=== PATIENT | female | born 1950 | race Caucasian/White ===

== ENCOUNTER 2016-08-21 09:32 | Day surgery (SDC) | payer OTHER, MEDICARE, BC ==
[~2016-08-21 09:32] MED LIST: ALLEGRA ALLERG180 M1 PO; ASPIRIN81 M1 PO; BENICAR HCT 40-1 T; CALCIUM CARBON500 M2 PO; COZAAR50 M1 PO; CULTURELLE1 EAC1 PO; CYCLOBENZAPRINE10 M1 PO; CYCLOBENZAPRINE5 M1 PO; DEXAMETHASONE4 M1 PO; DURAGESIC1 EAC3 TOP; ELIQUIS2.5 M1 PO; FEOSOL325 M1 PO; IBUPROFEN800 MG; IPRAT-ALBUT 0.5-3 ML INH; LASIX40 M1 PO; LIDOCAINE1 EACH TOP; LOVENOX100 MG/1 M SC; LYRICA100 MG/CAP PO; MERREM1 GM IV; METAMUCIL660 GM; MILK OF MAGNESIA PO; MIRALAX17 G2 PO; MUCINEX DM ER1 EAC1 PO; MUCINEX600 M1 PO; MULTIVITAMINS1 EAC6 PO; NORCO 5-325 TA1 EACH PO; NORVASC10 M2 PO; NORVASC10 MG; NOVOLOG100 UNITS/ SC; NYSTATIN1 EA10 TOP; PEPCID AC10 MG; PERIDEX118 ML SSP; POTASSIUM CHLO20 ME3 PO; PROBIOTIC1 EA10 PO; PROTONIX40 M2 PO; PROTONIX40 MG; REGLAN5 M1 PO; SENNA8.6 M2 PO; SIMETHICONE80 M3 PO; TRAMADOL HCL50 M2 PO; TYLENOL325 M2 PO; ULTRAM50 MG PO; URECHOLINE PO; VANCOMYCIN1 GM/VIA2 IV; VITAMIN C500 M3 PO; XANAX0.25 M1 PO; ZYRTEC1010 PO
[2016-10-15] MEDS ORDERED: WAL-ZYR10 M2 PO (16:33)
[2016-10-15] MEDS ORDERED: ASPIRIN81 M1 PO (16:33)
[2016-10-15] MEDS ORDERED: [UNRECOGNIZED DRUG - OTHER] (16:41)
== END 2016-08-21 17:30 ==
LOC: SHSC 09:32 → ORE 11:32 → PACU 12:47 → SHSB 13:35
PROC: 0C7S8ZZ Dilation of Larynx, Via Natural or Artificial Opening Endoscopic (ICD-10-PCS; principal; 2016-08-21)
PROC: 3E0F83Z Introduction of Anti-inflammatory into Respiratory Tract, Via Natural or Artificial Opening Endoscopic (ICD-10-PCS; 2016-08-21)
PROC: 0C5S8ZZ Destruction of Larynx, Via Natural or Artificial Opening Endoscopic (ICD-10-PCS; 2016-08-21)
DX: J38.6 Stenosis of larynx (principal); F32.9 Major depressive disorder, single episode, unspecified; K44.9 Diaphragmatic hernia without obstruction or gangrene; Z79.01 Long term (current) use of anticoagulants; Z79.899 Other long term (current) drug therapy; Z88.0 Allergy status to penicillin; Z88.5 Allergy status to narcotic agent; Z91.048 Other nonmedicinal substance allergy status; Z86.718 Personal history of other venous thrombosis and embolism; Z87.01 Personal history of pneumonia (recurrent); Z90.49 Acquired absence of other specified parts of digestive tract; Z98.1 Arthrodesis status; Z98.890 Other specified postprocedural states
CPT/HCPCS: J0171; J3301

== ENCOUNTER 2016-10-16 05:37 | Day surgery (SDC) | payer OTHER, MEDICARE, BC ==
[~2016-10-16 05:37] MED LIST changes: +WAL-ZYR10 M2 PO; +[UNRECOGNIZED DRUG - OTHER]
[2016-10-16 06:39] LABS: PROTHROMBIN TIME 11.1 SECONDS (9.0-13.6)
[2016-10-16 06:40] LABS: BASO % 0.4 % (0-2); EOSINOPHIL ABSOLUTE COUNT 0.1 tho/cmm (0.0-0.7); HCT-HEMATOCRIT 41.6 % (34.0-49.0); HGB-HEMOGLOBIN 13.1 gm/dl (12.0-15.5); IMMATURE GRANULOCYTES ABSOLUTE 0.01 tho/cmm (0-0.03); IMMATURE GRANULOCYTES PERCENT 0.2 % (0-0.3); LYMPH % 33.7 % (20-45); LYMPH ABSOLUTE COUNT 1.6 tho/cmm (0.8-4.5); MCH (MEAN CORPUSCULAR HGB) 25.4 pg (28.0-32.0); MCHC MEAN CORPUSCULAR HGB CONC 31.5 % (32.0-36.0); MCV (MEAN CELL VOLUME) 80.8 fl (82.0-96.0); MEAN PLATELET VOLUME 10.6 cmc (9.4-12.4); MONO % 13.7 % (0-12); MONOCYTE ABSOLUTE COUNT 0.6 tho/cmm (0.0-1.2); NEUTROPHIL ABSOLUTE COUNT 2.3 tho/cmm (1.6-8.0); NEUTROPHIL-AUTOMATED 2.3 tho/cmm (1.6-8.0); PLATELET COUNT 373 tho/cmm (150-450); RED BLOOD COUNT 5.15 mil/cmm (4.00-5.20); RED CELL DISTRIBUTION WIDTH 21.1 % (12.4-16.4); WHITE BLOOD COUNT 4.6 tho/cmm (4.0-10.0)
[2016-10-16 06:49] LABS: ANION GAP 10 mmol/L (0-20); BLOOD UREA NITROGEN 15 mg/dl (6-24); CARBON DIOXIDE-VENOUS 32 mmol/L (22-32); CHLORIDE 107 mmol/l (96-110); CREATININE 0.63 mg/dl (0.50-1.10); GLUCOSE 101 mg/dL (70-110); SODIUM 145 mmol/L (135-145); eGFR VALUE FOR BLACK >90 mL/Min
== END 2016-10-16 14:53 ==
LOC: SRG 05:37 → SHSB 05:44 → ORE 07:27 → PACU 08:32 → SHSB 08:55
PROVIDERS: Anesthesiology
PROC: 0B718ZZ Dilation of Trachea, Via Natural or Artificial Opening Endoscopic (ICD-10-PCS; principal; 2016-10-16)
DX: J38.6 Stenosis of larynx (principal); E66.9 Obesity, unspecified; M19.90 Unspecified osteoarthritis, unspecified site; M41.9 Scoliosis, unspecified; F41.9 Anxiety disorder, unspecified; F32.9 Major depressive disorder, single episode, unspecified; K44.9 Diaphragmatic hernia without obstruction or gangrene; K21.9 Gastro-esophageal reflux disease without esophagitis; D64.9 Anemia, unspecified; G65.0 Sequelae of Guillain-Barre syndrome; Z68.37 Body mass index [BMI] 37.0-37.9, adult; Z79.01 Long term (current) use of anticoagulants; Z79.82 Long term (current) use of aspirin; Z79.899 Other long term (current) drug therapy; Z88.0 Allergy status to penicillin; Z88.5 Allergy status to narcotic agent; Z91.048 Other nonmedicinal substance allergy status; Z87.01 Personal history of pneumonia (recurrent); Z86.718 Personal history of other venous thrombosis and embolism; Z86.19 Personal history of other infectious and parasitic diseases; Z86.711 Personal history of pulmonary embolism; Z90.49 Acquired absence of other specified parts of digestive tract; Z93.0 Tracheostomy status; Z98.1 Arthrodesis status; Z98.890 Other specified postprocedural states; Z99.81 Dependence on supplemental oxygen
CPT/HCPCS: C1725